=== PATIENT | female | born 1990 | race Caucasian/White ===

== ENCOUNTER → 2019-06-17 | Outpatient (CLI) | payer BC, OTHER ==
[~2019-06-17] MED LIST: NOHOMEMEDICATIONS; NORCO 5-325 TA1 EACH PO; NORFLEX100 MG PO
== END ==
LOC: ULTRA 13:19
DX: E03.9 Hypothyroidism, unspecified (principal)

== ENCOUNTER → 2020-03-30 | Outpatient (CLI) | payer OTHER | LOC: CAT 10:07 | PROVIDERS: ATTEND Nurse Practitioner | DX: J34.89 Other specified disorders of nose and nasal sinuses (principal); J34.2 Deviated nasal septum; J32.8 Other chronic sinusitis ==